=== PATIENT | male | born 1985 | race Caucasian/White ===

== ENCOUNTER 2016-10-04 10:13 | Emergency (ER) | payer SELFPAY ==
[~2016-10-04] VITALS: Ht 180.3 cm; Wt 62.8 kg
[2016-10-04 11:00] LABS: CHLORIDE 105 mEq/L (99-109); POTASSIUM 3.4 mEq/L (3.7-5.4)
[2016-10-04 11:01] LABS: SODIUM 144 mEq/L (136-147)
[2016-10-04 11:02] LABS: GLUCOSE 96 mg/dL (70-99)
[2016-10-04 11:04] LABS: ANION GAP 13 MEQ/L (2-14)
[2016-10-04 11:05] LABS: SERUM ETHYL ALCOHOL 376 mg/dL
[2016-10-04 11:08] LABS: GFR ESTIMATE (CALCULATED) > 59 mL/min/; UREA NITROGEN (BUN) 6 mg/dL (9-23)
[2016-10-04 11:09] LABS: SALICYLATE < 5.0 MG/DL (15-30)
[2016-10-04 22:59] VITALS: BP 117/78
== END 2016-10-04 23:09 | disposition home or self-care (01) ==
LOC: EME 10:13
PROVIDERS: Emergency Medicine
DX: F10.129 Alcohol abuse with intoxication, unspecified (principal); Y90.8 Blood alcohol level of 240 mg/100 ml or more; Z73.3 Stress, not elsewhere classified; F17.200 Nicotine dependence, unspecified, uncomplicated
CPT/HCPCS: 80048; 90837; 93005; 99281; 99285; G0480